=== PATIENT | female | born 1995 | race Caucasian/White ===

== ENCOUNTER 2017-06-16 00:33 | Emergency (ER) | payer OTHER ==
[2017-06-16] MEDS ORDERED: Ketorolac 60 MG/2 ML SDV IM ONE (00:50)
[2017-06-16] MEDS ORDERED: Ketorolac 30 MG/ML SDV IVPUSH ONE (00:59)
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
--- NOTE | 2017-06-16 09:22 | CR ---
Right knee There is normal alignment throughout the knee. There is no evidence for fracture. There is a small marilu int effusion. Impression: 1. Small joint effusion. 2. Otherwise negative.
== END 2017-06-16 01:58 | disposition home or self-care (01) ==
LOC: JP.ED 00:33
DX: S86.911A Strain of unspecified muscle(s) and tendon(s) at lower leg level, right leg, initial encounter (principal); F17.210 Nicotine dependence, cigarettes, uncomplicated; Z88.8 Allergy status to other drugs, medicaments and biological substances; W03.XXXA Other fall on same level due to collision with another person, initial encounter; Y93.89 Activity, other specified
CPT/HCPCS: 73562; 96374; 99284; J1885